=== PATIENT | male | born 1945 | race Caucasian/White ===

== ENCOUNTER → 2020-07-01 09:04 | Outpatient (BNVA) | payer MEDICARE, OTHER, SELFPAY | PROVIDERS: PCP Internal Medicine; Visit Provider Hospitalist | DX: J44.9 Chronic obstructive pulmonary disease, unspecified (principal); J92.0 Pleural plaque with presence of asbestos; R91.8 Other nonspecific abnormal finding of lung field; J98.4 Other disorders of lung | CPT/HCPCS: 99212 ==

== ENCOUNTER → 2020-08-11 09:15 | Outpatient (BNVA) | payer MEDICARE, OTHER, SELFPAY | PROVIDERS: PCP Internal Medicine; Referring Provider Internal Medicine; Visit Provider Hospitalist | DX: R59.0 Localized enlarged lymph nodes (principal) | CPT/HCPCS: Q3014 ==

== ENCOUNTER 2020-08-15 11:01 | Outpatient (REF) | payer MEDICARE, OTHER, SELFPAY ==
--- NOTE | 2020-08-15 11:06 | US_ITS ---
EXAMINATION: ULTRASOUND RIGHT AXILLARY LYMPH NODE BIOPSY CLINICAL INFORMATION: History of lung nodules. Bulky right axillary lymphadenopathy. COMPARISON: CT chest 06/10/2019 and 08/08/2020. TECHNIQUE: Following explaining ultrasound-guided right axillary lymph node biopsy procedure, benefits and risks, written consent was obtained. Patient was placed in left lateral decubitus view and preliminary ultrasound imaging was obtained through the right axilla. An optimal site was selected along the anterior axillary line and marked. The marked site was cleaned and draped in usual sterile manner. 1% lidocaine was injected at puncture site. Through a small skin incision a 3 pass fine-needle aspiration biopsy was performed with a 25-gauge needle. Subsequently a small skin incision was performed and a 20-gauge guide followed by a biopsy gun was administered and a 3 pass core biopsy was obtained for flow cytometry and pathology. Postprocedure complete hemostasis achieved. Sterile bandage applied at the puncture site. Patient tolerated procedure extremely well. FINDINGS: On preliminary ultrasound imaging there are solid hypoechoic lymph nodes. Successful ultrasound-guided fine needle aspiration and core tissue biopsy performed for flow cytometry and pathology US/US biopsy lymph node IMPRESSION: Successful ultrasound-guided fine needle aspiration and core biopsy performed. Pathology results are pending.
[2020-08-17 16:17] LABS: LLE Markers 23
== END 2020-08-15 11:02 | disposition home or self-care (01) ==
LOC: HO.US 11:01
PROVIDERS: PCP Internal Medicine; Visit Provider Hospitalist
DX: R59.0 Localized enlarged lymph nodes (principal)
CPT/HCPCS: 36415; 38505; 76942; 88172; 88173; 88177; 88184; 88185; 88189; 88300; 88305; 88307; 88341; 88342